=== PATIENT | female | born 1940 | race Caucasian/White ===

== ENCOUNTER 2017-01-14 10:18 | Emergency (ER) | payer OTHER, BC ==
[~2017-01-14] VITALS: Ht 165.1 cm; Wt 46.4 kg
[~2017-01-14 10:18] MED LIST: ASPIRIN325 MG; COMBIGAN O20 DROP/5 BOTH EYES; LAMOTRIGINE200 MG PO; LUMIGAN 0.50 DROP/2. BOTH EYES; PRAVASTATIN SOD40 MG PO; PROPRANOLOL HCL10 MG PO
[2017-01-14 12:35] LABS: HEMATOCRIT 44.4 % (36.0-46.0); MCH 34.1 PG (29.0-34.0); MCHC 33.1 G/DL (30.0-36.0); MEAN PLAT.VOLUME 9.1 uM^3 (9.5-12.4); PLATELET COUNT 294 K/uL (156-360); RBC DIS.WIDTH-CV 11.8 % (11.8-14.6); RBC DIS.WIDTH-SD 45.2 % (39-53); RED BLOOD COUNT 4.31 M/uL (3.80-5.20); WHITE BLOOD COUNT 6.8 K/uL (4.1-10.2)
[2017-01-14 12:45] LABS: ADD MIUA? YES; BILIRUBIN NEGATIVE; BLOOD MODERATE; COLOR YELLOW ((YELLOW)); GLUCOSE (STRIP) NEGATIVE; KETONES NEGATIVE; LEUKOCYTES NEGATIVE; NITRITE NEGATIVE; PROTEIN (STRIP) NEGATIVE; UROBILINOGEN 0.2 MG/DL (0.2-1.0)
[2017-01-14 12:53] LABS: BACTERIA RARE /HPF; EPITHELIAL CELLS NONE SEEN /HPF; MUCUS NONE SEEN /LPF; RED BLOOD CELLS 40-50 /HPF (0-5); UCUL ADDED? NO; WHITE BLOOD CELLS 0-5 /HPF (0-5)
[2017-01-14 13:06] LABS: ANION GAP 8 MEQ/L (2-14); CHLORIDE 100 MEQ/L (99-109); POTASSIUM 4.4 MEQ/L (3.7-5.4); SAMPLE HEMOLYSIS CHECK 0; SAMPLE ICTERIC CHECK 0; SAMPLE LIPEMIA CHECK 0; SODIUM 137 MEQ/L (136-147)
[2017-01-14 13:12] LABS: GFR ESTIMATE (CALCULATED) > 59 mL/min/; GLUCOSE 88 mg/dL (70-99); UREA NITROGEN (BUN) 10 mg/dL (9-23)
[2017-01-14] MEDS ORDERED: ANTIVERT25 MG PO (15:31)
[2017-01-14 16:03] VITALS: BP 140/82
== END 2017-01-14 16:03 | disposition home or self-care (01) ==
LOC: EME 10:18
PROVIDERS: Physician Assistant
DX: R51 Headache (principal); R42 Dizziness and giddiness; H40.9 Unspecified glaucoma; E78.5 Hyperlipidemia, unspecified; I10 Essential (primary) hypertension; G40.909 Epilepsy, unspecified, not intractable, without status epilepticus; Z88.8 Allergy status to other drugs, medicaments and biological substances
CPT/HCPCS: 70450; 80048; 81003; 85027; 99281; 99284; J7512

== ENCOUNTER 2017-07-17 20:08 | Emergency (ER) | payer OTHER, BC ==
[~2017-07-17] VITALS: Ht 165.1 cm; Wt 47.5 kg
[~2017-07-17 20:08] MED LIST changes: +ANTIVERT25 MG PO
[2017-07-17 23:04] VITALS: BP 145/78
== END 2017-07-17 23:04 | disposition home or self-care (01) ==
LOC: EME 20:08
DX: S00.03XA Contusion of scalp, initial encounter (principal); M54.2 Cervicalgia; W18.39XA Other fall on same level, initial encounter; I10 Essential (primary) hypertension; Z79.82 Long term (current) use of aspirin
CPT/HCPCS: 70450; 99281; 99283

== ENCOUNTER 2017-08-19 03:52 | Observation (INO) | payer OTHER, BC ==
[~2017-08-19] VITALS: Ht 165.1 cm; Wt 46.3 kg
[~2017-08-19 03:52] MED LIST changes: -ASPIRIN325 MG; +ST. JOSEPH ASPI81 MG PO
[2017-08-19 04:36] LABS: HEMATOCRIT 42.3 % (36.0-46.0); MCH 34.4 PG (29.0-34.0); MEAN PLAT.VOLUME 9.1 uM^3 (9.5-12.4); PLATELET COUNT 258 K/uL (156-360); RBC DIS.WIDTH-CV 11.9 % (11.8-14.6); RBC DIS.WIDTH-SD 44.6 % (39-53); RED BLOOD COUNT 4.19 M/uL (3.80-5.20); WHITE BLOOD COUNT 5.5 K/uL (4.1-10.2)
[2017-08-19 04:42] LABS: PROTHROMBIN TIME 11.2 SEC (10.2-12.9)
[2017-08-19 04:45] LABS: PTT 32.1 SEC (25-37)
[2017-08-19 04:47] LABS: CHLORIDE 98 mEq/L (99-109); SODIUM 135 mEq/L (136-147)
[2017-08-19 04:48] LABS: GLUCOSE 98 mg/dL (70-99)
[2017-08-19 04:50] LABS: ANION GAP 12 MEQ/L (2-14)
[2017-08-19 04:52] LABS: GFR ESTIMATE (CALCULATED) > 59 mL/min/
[2017-08-19 04:53] LABS: UREA NITROGEN (BUN) 7 mg/dL (9-23)
[2017-08-19 04:56] LABS: TROP-I INTERPRETATION NEGATIVE; TROPONIN-I < 0.01 ng/mL (0.0-0.30)
[2017-08-19] MEDS ORDERED: COSOPT EYE DROP10 ML BOTH EYES (08:36)
[2017-08-19] MEDS ORDERED: LATANOPROST2.5 ML BOTH EYES ×2 (08:36→08:37)
[2017-08-19] MEDS ORDERED: MECLIZINE HCL25 MG PO (08:38)
[2017-08-19] MEDS ORDERED: ATORVASTATIN CA40 MG PO (08:39)
[2017-08-19 09:12] VITALS: BP 120/58
[2017-08-19 11:33] LABS: TROP-I INTERPRETATION NEGATIVE; TROPONIN-I < 0.01 ng/mL (0.0-0.30)
[2017-08-19 12:00] VITALS: BP 85/50
[2017-08-19 15:48] VITALS: BP 96/51
[2017-08-19 17:01] LABS: TROP-I INTERPRETATION NEGATIVE; TROPONIN-I < 0.01 ng/mL (0.0-0.30)
[2017-08-19 17:04] LABS: ANION GAP 7 MEQ/L (2-14); CHLORIDE 101 MEQ/L (99-109); GFR ESTIMATE (CALCULATED) > 59 mL/min/; GLUCOSE 109 mg/dL (70-99); POTASSIUM 4.2 MEQ/L (3.7-5.4); SAMPLE HEMOLYSIS CHECK 0; SAMPLE ICTERIC CHECK 0; SAMPLE LIPEMIA CHECK 0; SODIUM 134 MEQ/L (136-147); UREA NITROGEN (BUN) 15 mg/dL (9-23)
== END 2017-08-19 18:55 | disposition home or self-care (01) ==
LOC: EME 03:52 → EDOF 07:23 → ENRESERV 07:25 → 5WEST 08:59
PROVIDERS: Emergency Medicine; Internal Medicine
DX: R07.9 Chest pain, unspecified (principal); I10 Essential (primary) hypertension; E78.5 Hyperlipidemia, unspecified; G40.909 Epilepsy, unspecified, not intractable, without status epilepticus; E83.52 Hypercalcemia; R63.4 Abnormal weight loss; Z68.1 Body mass index [BMI] 19.9 or less, adult; H40.9 Unspecified glaucoma; Z86.73 Personal history of transient ischemic attack (TIA), and cerebral infarction without residual deficits; Z79.82 Long term (current) use of aspirin
CPT/HCPCS: 71020; 71275; 74174; 80048; 80048 91; 84484; 85027; 85610; 85730; 93005; 99281; 99285; G0378; J1650; J7030

== ENCOUNTER 2018-06-13 22:47 | Emergency (ER) | payer OTHER, BC ==
[~2018-06-13] VITALS: Ht 165.1 cm; Wt 50.0 kg
[~2018-06-13 22:47] MED LIST changes: +ATORVASTATIN CA40 MG PO; +COSOPT EYE DROP10 ML BOTH EYES; +LATANOPROST2.5 ML BOTH EYES; +MECLIZINE HCL25 MG PO
[2018-06-13 23:23] LABS: HEMATOCRIT 39.9 % (36.0-46.0); HEMOGLOBIN 13.4 G/DL (11.9-15.5); MCH 34.2 PG (29.0-34.0); MCHC 33.6 G/DL (30.0-36.0); MCV 101.8 FL (83-99); PLATELET COUNT 293 K/uL (156-360); RBC DIS.WIDTH-CV 11.6 % (11.8-14.6); RBC DIS.WIDTH-SD 43.3 % (39-53); RED BLOOD COUNT 3.92 M/uL (3.80-5.20); WHITE BLOOD COUNT 6.2 K/uL (4.1-10.2)
[2018-06-13 23:29] LABS: INTER. NORMALIZED RATIO 1.1
[2018-06-13 23:31] LABS: CHLORIDE 102 mEq/L (99-109); POTASSIUM 3.8 mEq/L (3.7-5.4); PTT 31.4 SEC (25-37); SODIUM 135 mEq/L (136-147)
[2018-06-13 23:32] LABS: GLUCOSE 102 mg/dL (70-99)
[2018-06-13 23:36] LABS: CREATININE 0.8 mg/dL (0.6-1.3); GFR ESTIMATE (CALCULATED) > 59 mL/min/
[2018-06-13 23:37] LABS: UREA NITROGEN (BUN) 13 mg/dL (9-23)
[2018-06-14] MEDS ORDERED: ULTRAM50 MG PO (00:56)
[2018-06-14 01:12] VITALS: BP 150/92
== END 2018-06-14 01:13 | disposition home or self-care (01) ==
LOC: EME → EDBD 22:47 → EDSEX 22:47 → EME 22:47
PROVIDERS: Emergency Medicine
DX: S00.83XA Contusion of other part of head, initial encounter (principal); V49.40XA Driver injured in collision with unspecified motor vehicles in traffic accident, initial encounter; Y92.410 Unspecified street and highway as the place of occurrence of the external cause; I10 Essential (primary) hypertension; E78.5 Hyperlipidemia, unspecified; R56.9 Unspecified convulsions; F41.9 Anxiety disorder, unspecified; Z79.82 Long term (current) use of aspirin; Z86.73 Personal history of transient ischemic attack (TIA), and cerebral infarction without residual deficits; Z88.8 Allergy status to other drugs, medicaments and biological substances
CPT/HCPCS: 70450; 71045; 72125; 72170; 80048; 85027; 85610; 85730